=== PATIENT | male | born 1945 | race Caucasian/White ===

== ENCOUNTER 2023-05-08 09:34 | Outpatient (CLI) | payer MEDICARE, BC, SELFPAY | END 2023-05-08 09:35 | disposition home or self-care (01) | LOC: LKVREF 09:36 | PROVIDERS: Visit Provider Family Medicine | DX: J18.9 Pneumonia, unspecified organism (principal); R60.0 Localized edema; Z95.0 Presence of cardiac pacemaker; R05.9 Cough, unspecified | CPT/HCPCS: 83880 ==